=== PATIENT | male | born 1975 | race Caucasian/White ===

== ENCOUNTER 2020-07-17 01:27 | Emergency (ER) | payer OTHER, BC ==
--- NOTE | 2020-07-17 01:36 | ED Physician Documentation ---
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 this was a hollow-bore needle but he is confident there was no blood on/in the needle. patient (this patient) denies h/o HIV, hepatitis; he has had his complete hep b series and is UTD on immunizations Review of Systems Immunocompromised: denies: Immunocompromised, HIV/AIDS PD PAST MEDICAL HISTORY - Past Medical History Past Medical History: No - Present Medications Home Medications: Ambulatory Orders Medication Instructions Recorded Confirmed No Known Home Medications 07/17/20 07/17/20 - Allergies Allergies/Adverse Reactions: Allergies Allergy/AdvReac Type Severity Reaction Status Date / Time No Known Drug Allergies Allergy Verified 07/17/20 01:42 PD ED PE NORMAL - Vitals Vital signs reviewed: Yes - General General: Alert and oriented X 3, No acute distress, Well developed/nourished - Extremities Extremities: Other (punctate needle stick puncture to pad of left thumb, no bleeding) Results - Vitals Vitals: Oxygen O2 Source Room air PD MEDICAL DECISION MAKING - ED course Complexity details: considered differential, d/w patient ED course: needle stick shortly before ED arrival. he is not immunocompromised. there was no visible blood on needle. source patient is also a patient in ED and there are no apparent risk factors in source for HIV or hepatitis and source patient denies having either of these diseases. prophylaxis not recommended for patient. Departure - Departure Disposition: 01 Home, Self Care Clinical Impression: Needle stick injury Condition: Good Instructions: ED Body Fluid Exp HC Worker Comments: Follow up with employee health as instructed Discharge Date/Time: 07/17/20 03:14
[2020-07-17 03:16] VITALS: BP 128/79
== END 2020-07-17 03:14 | disposition home or self-care (01) ==
LOC: ED 01:27
DX: S61.032A Puncture wound without foreign body of left thumb without damage to nail, initial encounter (principal); Z77.21 Contact with and (suspected) exposure to potentially hazardous body fluids; W46.1XXA Contact with contaminated hypodermic needle, initial encounter; Y93.F9 Activity, other caregiving; Y99.0 Civilian activity done for income or pay
CPT/HCPCS: 86317; 86803; 87389; 99282; 99283

== ENCOUNTER 2020-10-21 09:52 | Outpatient (CLI) | payer BC | END 2020-10-21 09:53 | disposition home or self-care (01) | LOC: LAB 09:52 | PROVIDERS: ATTEND Emergency Medicine | DX: Z01.89 Encounter for other specified special examinations (principal) | CPT/HCPCS: 36415; 86317; 86803; 87389 ==